=== PATIENT | female | born 1985 | race Hispanic/Latino ===

== ENCOUNTER 2020-02-16 08:24 | Inpatient (IN) | payer OTHER ==
[~2020-02-16] VITALS: Ht 152.4 cm; Wt 87.0 kg
[2020-02-20] MEDS ORDERED: LABETALOL HCL100 MG PO (06:54)
[2020-02-20] MEDS ORDERED: ASPIR-LOW81 MG PO (06:55)
[2020-02-20] MEDS ORDERED: PRENATAL VITAM1 EAC8 PO (06:55)
--- NOTE | 2020-02-20 08:57 | NUR ---
02/20/20 0857 Sheets,Megan 0856 PT ARRIVED TO [facility] ON RA, PT AWAKE AND TALKING TO RNA ND [facility]BC RN. BABY ON CHEST. PT DENIES PAIN AND NAUSEA. GRIMACING NOTED WITH FUNDAL CHECK. VSS.
--- NOTE | 2020-02-20 12:55 | OR ---
[facility] [address] [place], [place] [address] Signed DATE OF OPERATION: 02/20/2020 SURGEON: Celeste Jones MD GUARD IMMIGRATION: Domingo Rider MD PREOPERATIVE DIAGNOSIS: Term , previous section x2. POSTOPERATIVE DIAGNOSIS: Term , previous section x2, delivered. PROCEDURE PERFORMED: Repeat section with low segment transverse uterine incision. ANESTHESIA: Spinal. ESTIMATED BLOOD LOSS: 600 mL. DRAINS: Melton catheter. INDICATIONS AND FINDINGS: The patient is a 34-year-old female, 4, para 2, SAB 1, admitted at 39 weeks for repeat section. The patient has a history of chronic hypertension and is on labetalol. She has been managed on labetalol as well as baby aspirin throughout her . At the time of delivery, she was delivered of a little boy via lower segment transverse uterine incision from the ROT position with Apgars of 9 and 9 and weight of 9 pounds 1 ounce. The lower segment was extremely thin. The uterus, tubes, ovaries, and placenta were otherwise normal. DESCRIPTION OF PROCEDURE: The patient was prepped and draped in the supine position. A repeat Pfannenstiel skin incision was made and carried down through the fascia. The incision was extended laterally. The inferior and superior fascial flaps were then created. The peritoneum was opened at this time and the incision extended superiorly and inferiorly. The Jarett retractor was then placed. The uterine incision was made at the upper aspect of the Electronically Signed By: ECLESTE JONES MD 02/20/20 1236 PATIENT NAME: MEENAKSHI WANG OPERATIVE REPORT DATE OF : 87 REPORT #: [id number] PHYSICIAN: CELESTE JONES MD PCP: CELESTE JONES MD REPORT IS CONFIDENTIAL AND NOT TO BE RELEASED WITHOUT AUTHORIZATION [facility] [address] [place], [place] [address] Signed peritoneal reflection. The lower segment was extremely thin. The baby was delivered with the above findings and handed out to the pediatric staff in attendance. The placenta was delivered manually. The uterus explored with a lap tape assuring no remaining fragments. The edges of the incision were identified and the uterus closed in 2 layers. The first layer was a running locking stitch and the second was a horizontal imbricating stitch. Additional ijgyav-ad-ulzmh was required near the patient's lower left side because of a small hematoma that was forming. This did not expand following this. This layer was then serially irrigated and inspected and good hemostasis was noted. The Jarett retractor was removed and the peritoneum identified. An ACell graft was laid over the lower segment to aid in healing. The peritoneum was then closed with a running suture of 3-0 Vicryl. There were multiple bleeding points on the fascia as there had been quite a bit of scarring. These were primarily in the right upper aspect. This required multiple bcevpb-pj-dtrywt of 0 Vicryl for control of bleeding. Cautery was also used. This area was irrigated and the bleeding appeared to be pretty much resolved except the muscles appeared raw. Because of this, Tisseel was used and sprayed over the muscle to aid further in hemostasis. This was followed by Acell powder to aid in healing. The fascia was then closed from each angle to the midline with a running suture of 0 Vicryl. The subcutaneous tissue was irrigated and inspected and bleeding points controlled with cautery. The deep space was closed with interrupted sutures of 3-0 Vicryl. The skin incision was closed with a subcuticular suture of 4-0 Vicryl Rapide. This was followed by Mastisol and Steri-Strips. All sponge and needle counts were correct. She tolerated the procedure well and was taken to the recovery room in good condition. Celeste Jonse MD PJW/JAMIE /[id number] cc: Domingo Rider MD Copies: DOMINGO RIDER MD Electronically Signed By: CELESTE JONES MD 02/20/20 1236 PATIENT NAME: MEENAKSHI WANG OPERATIVE REPORT DATE OF : 87 REPORT #: [id number] PHYSICIAN: CELESTE JONES MD PCP: CELESTE JONES MD REPORT IS CONFIDENTIAL AND NOT TO BE RELEASED WITHOUT AUTHORIZATION [address] [place] [address] Signed ~ Electronically Signed By: CELESTE JONES MD 02/20/20 1236 PATIENT NAME: JEISON WANGIANA AARON OPERATIVE REPORT DATE OF : 87 REPORT #: [id number] PHYSICIAN: CELESTE JONES MD PCP: CELESTE JONES MD REPORT IS CONFIDENTIAL AND NOT TO BE RELEASED WITHOUT AUTHORIZATION
--- NOTE | 2020-02-21 08:42 | PR ---
[facility] [address] [facility] [place], [place] [address] Signed PP Progress Notes Datetime Report Generated by CPJuan Antonio: 02/21/2020 08:42 SUBJECTIVE: [id number] Pain: Within normal limits Nausea/Vomiting: Denies Flatus: Yes Vital Signs: [id number] Vital Signs: Reviewed; Within Normal Limits EXAM: [id number] Cardiovascular: Normal Respiratory: Normal Abdomen/Uterus: Abnormal Lochia: Normal Vulva/Perineum: Not Done Breasts: Not Done CVA Tenderness: Not Done Extremities: Normal Incision: Normal Progress: Abnormal Exam Comments: Abdomen with active BS. Fundus firm, NT @ U. H/H 9.6/28.2, WBC 6.5, plat 168k IMPRESSION/PLAN/PROCEDURES: [id number] Impression: Normal progression Plan: consult Other Plans: increase ambulation Progress Notes: Doing well. UO much improved. Signing Physician: Celeste Jones MD Copies: ~ *Electronically Signed* 02/21/20 0842 CELESTE JONES MD PATIENT NAME: FELIPEJEISONMEENAKSHIASTRID WALKER PROGRESS NOTE DATE OF : 87 PHYSICIAN: CELESTE JONES MD RPT #: [id number] REPORT IS CONFIDENTIAL AND NOT TO BE RELEASED WITHOUT AUTHORIZATION
--- NOTE | 2020-02-22 07:55 | PR ---
[facility] [address] [facility] [place], [place] [address] Signed PP Progress Notes Datetime Report Generated by CPN: 02/22/2020 07:55 SUBJECTIVE: [id number] Pain: Within normal limits Nausea/Vomiting: Denies Flatus: Yes Vital Signs: [id number] Vital Signs: Reviewed; Within Normal Limits EXAM: [id number] Cardiovascular: Not Done Respiratory: Not Done Abdomen/Uterus: Abnormal Lochia: Normal Vulva/Perineum: Not Done Breasts: Not Done CVA Tenderness: Not Done Extremities: Normal Incision: Normal Progress: Abnormal Exam Comments: Abdomen with active BS. Fundus firm, NT @ U-1. IMPRESSION/PLAN/PROCEDURES: [id number] Impression: Normal progression Plan: Discharge Other Plans: increase ambulation Procedures: None Progress Notes: Doing well except for breast feeding. She is ready for D/C. Signing Physician: Celeste Jones MD Copies: ~ *Electronically Signed* 02/22/20 0755 CELESTE JONES MD PATIENT NAME: FELIPEJEISONMEENAKSHIASTRID WALKER PROGRESS NOTE DATE OF : 87 PHYSICIAN: CELESTE JONES MD RPT #: [id number] REPORT IS CONFIDENTIAL AND NOT TO BE RELEASED WITHOUT AUTHORIZATION
== END 2020-02-22 11:55 | disposition home or self-care (01) | DRG 787 ==
LOC: FBC 02-20 04:57
PROVIDERS: ADMIT Obstetrics & Gynecology
PROC: 10D00Z1 Extraction of Products of Conception, Low, Open Approach (ICD-10-PCS; principal; 2020-02-20 06:45)
DX: O34.211 Maternal care for low transverse scar from previous cesarean delivery (principal); O10.92 Unspecified pre-existing hypertension complicating childbirth; N85.8 Other specified noninflammatory disorders of uterus; O99.214 Obesity complicating childbirth; E66.9 Obesity, unspecified; O32.2XX0 Maternal care for transverse and oblique lie, not applicable or unspecified; Z3A.39 39 weeks gestation of pregnancy; Z37.0 Single live birth; Z79.899 Other long term (current) drug therapy; O69.81X0 Labor and delivery complicated by cord around neck, without compression, not applicable or unspecified; Z79.82 Long term (current) use of aspirin
CPT/HCPCS: 01961; 36415; 85027; A9270; J0690; J1170; J1200; J1644; J1885; J2001; J2270; J2274; J2300; J2405; J2590; J7040; J7121

== ENCOUNTER 2024-01-05 08:15 | Inpatient (IN) | payer OTHER ==
[~2024-01-05 08:15] MED LIST: ASPIR-LOW81 MG PO; LABETALOL HCL100 MG PO; PRENATAL VITAM1 EAC8 PO
[2024-01-06] MEDS ORDERED: LACTATED RINGER'S 1,000 ML IV PRN (05:00)
[2024-01-06] MEDS ORDERED: LACTATED RINGER'S 2,000 ML IV PRN (05:00)
[2024-01-06] MEDS ORDERED: LACTATED RINGER'S 1,000 ML IV SCH ×2 (05:00→08:53)
[2024-01-06 05:41] LABS: HEMOGLOBIN 12.2 g/dL (12.0-18.0); MCH 27.4 (27-36); MCHC 33.9 g/dl (30-36); RBC 4.44 M/ul (4.3-5.7); RDW 14.2 (10.5-15.0)
[2024-01-06 05:50] VITALS: BP 140/88
[2024-01-06 05:57] LABS: AMPHETAMINES, URINE NEGATIVE (NEGATIVE); BARBITURATES, URINE NEGATIVE (NEGATIVE); BENZODIAZEPINE, URINE NEGATIVE (NEGATIVE); BUPRENORPHINE, URINE NEGATIVE (NEGATIVE); CANNABINOID, URINE NEGATIVE (NEGATIVE); COCAINE, URINE NEGATIVE (NEGATIVE); ECSTASY, URINE NEGATIVE (NEGATIVE); FENTANYL, URINE NEGATIVE (NEGATIVE); METHADONE, URINE NEGATIVE (NEGATIVE); OPIATES, URINE NEGATIVE (NEGATIVE); OXYCODONE, URINE NEGATIVE (NEGATIVE); PHENCYCLIDINE, URINE NEGATIVE (NEGATIVE)
[2024-01-06 06:16] LABS: ABO A; ANTIBODY SCREEN NEGATIVE; RH POSITIVE
[2024-01-06] MEDS ORDERED: fentaNYL citrate 100 MCG/2 ML VIAL ONE (06:59)
[2024-01-06] MEDS ORDERED: MORPHINE SULFATE 1 MG/ML VIAL ONE (06:59)
[2024-01-06] MEDS ORDERED: LIDOCAINE HCL 2% 5 ML SDV ONE (06:59)
[2024-01-06] MEDS ORDERED: OXYTOCIN 10 UNITS/ML VIAL ONE ×3 (06:59→08:02)
[2024-01-06] MEDS ORDERED: BUPIVACAINE 0.75% IN DEXTROSE 2 ML AMP ONE (06:59)
[2024-01-06] MEDS ORDERED: ondansetron HCL 4 MG/2 ML VIAL ONE (06:59)
[2024-01-06] MEDS ORDERED: SOD+POT BICARB/CITRIC ACID 2 EA TABLET.EFF PO SCH (07:00)
[2024-01-06] MEDS ORDERED: CEFAZOLIN SODIUM 3 GM/30 ML SYR IV SCH (07:00)
[2024-01-06] MEDS ORDERED: ePHEDrine sulfate 50 MG/ML AMP ONE (07:22)
[2024-01-06] MEDS ORDERED: Ropivacaine HCl 0.5% 30 ML VIAL ONE (07:53)
[2024-01-06] MEDS ORDERED: DEXAMETHASONE SOD PHOS 4 MG/ML VIAL ONE ×2 (07:53)
[2024-01-06] MEDS ORDERED: SODIUM CHLORIDE 0.9% 20 ML IV ONE (07:53)
[2024-01-06] MEDS ORDERED: NALOXONE HCL 0.4 MG SYR IV PRN (08:00)
[2024-01-06] MEDS ORDERED: ondansetron HCL 4 MG/2 ML VIAL IV PRN ×2 (08:00→09:00)
[2024-01-06] MEDS ORDERED: KETOROLAC TROMETHAMINE 30 MG/ML VIAL IV PRN (08:00)
[2024-01-06] MEDS ORDERED: diphenhydrAMINE HCL 50 MG/ML VIAL IV PRN (08:00)
[2024-01-06] MEDS ORDERED: HYDROmorphone HCL 1 MG/ML SYR IV PRN (08:00)
[2024-01-06] MEDS ORDERED: PROCHLORPERAZINE EDISYLATE 10 MG/2 ML VIAL IV PRN ×2 (08:00→09:00)
[2024-01-06] MEDS ORDERED: LACTATED RINGER'S 1,000 ML IV ONE ×2 (08:02)
--- NOTE | 2024-01-06 08:49 | NUR ---
01/06/24 0849 Erinn Martinez 0865-PATIENT ARRIVED TO ROOM 104 [facility] FOR RECOVERY. PATIENT AWAKE DENIES PAIN OR NAUSEA. RA 99% RR EVEN. SPINAL LEVEL AT T9. LÓPEZ CATHETER DRAINING YELLOW URINE. SR. LIGHT RUBRA DRAINAGE TO ASHLEY PAD. ABDOMINAL DRESSING CDI. FAMILY AT BEDSIDE. IVF INFUSING LR WITH 20 PITOCIN TO RIGHT HAND CDI.
[2024-01-06] MEDS ORDERED: OXYCODONE HCL 5 MG TAB PO PRN (09:00)
[2024-01-06] MEDS ORDERED: SENNOSIDES/DOCUSATE 1 EA TAB PO SCH (09:00)
[2024-01-06] MEDS ORDERED: KETOROLAC TROMETHAMINE 30 MG/ML VIAL IV SCH (09:00)
[2024-01-06] MEDS ORDERED: OXYTOCIN/0.9 % SODIUM CHLORIDE 500 ML IV SCH (09:00)
[2024-01-06] MEDS ORDERED: METOCLOPRAMIDE HCL 10 MG/2 ML SDV IV PRN (09:00)
[2024-01-06] MEDS ORDERED: PROMETHAZINE HCL 25 MG TAB PO PRN (09:00)
[2024-01-06] MEDS ORDERED: bisacodyL 10 MG SUPP PR PRN (09:00)
[2024-01-06] MEDS ORDERED: PROMETHAZINE HCL 25 MG SUPP PR PRN (09:00)
[2024-01-06] MEDS ORDERED: HYDROCODONE/ACETA 5/325 TAB PO PRN (09:00)
[2024-01-06] MEDS ORDERED: OXYCODONE/APAP 5/325 TAB PO PRN (09:00)
[2024-01-06] MEDS ORDERED: SIMETHICONE 125 MG TABLET CHEWABLE PO SCH (11:00)
[2024-01-06] MEDS ORDERED: ENOXAPARIN SODIUM 40 MG/0.4 ML SYR SUB-Q SCH (15:00)
[2024-01-07] MEDS ORDERED: LACTATED RINGER'S 1,000 ML IV SCH (05:00)
[2024-01-07 05:49] LABS: HEMATOCRIT 31.2 % (35.0-50.0); HEMOGLOBIN 10.2 g/dL (12.0-18.0); MCH 27.1 (27-36); MCHC 32.9 g/dl (30-36); MCV 82.4 fl (81-99); RBC 3.78 M/ul (4.3-5.7); RDW 14.2 (10.5-15.0)
--- NOTE | 2024-01-07 06:54 | PR ---
[facility] [address] [facility] [place], [place] [address] Signed PP Progress Notes Datetime Report Generated by CPN: 01/07/2024 06:54 SUBJECTIVE: [id number] Pain: Within Normal Limits Nausea/Vomiting: Present Flatus: Yes Vital Signs: [id number] Vital Signs: Reviewed; Within Normal Limits EXAM: Ongoing Cardiovascular: Normal Respiratory: Normal Abdomen/Uterus: Abnormal Lochia: Normal Vulva/Perineum: Not Done Breasts: Not Done CVA Tenderness: Not Done Extremities: Normal Incision: Normal Progress: Abnormal Exam Comments: Abdomen with active BS. Fundus firm, NT @ U. H/H 10.2/31.2, WBC 7.6, plat 243k IMPRESSION/PLAN/PROCEDURES: [id number] Impression: Normal Progression Other Plans: ambulate, shower Procedures: None Progress Notes: Doing well. Will increase ambulation. Signing Physician: Celeste Jones MD Copies: ~ *Electronically Signed* 01/07/24 0654 CELESTE JONES MD PATIENT NAME: FELIPEJEISONMEENAKSHIASTRID WALKER PROGRESS NOTE DATE OF : 87 PHYSICIAN: CELESTE JONES MD RPT #: [id number] REPORT IS CONFIDENTIAL AND NOT TO BE RELEASED WITHOUT AUTHORIZATION
[2024-01-07] MEDS ORDERED: IBUPROFEN 600 MG TAB PO SCH (08:00)
--- NOTE | 2024-01-07 13:40 | NUR ---
ROUNDS. DETAILED NOTE ENTERED IN [facility] CHARTING SYSTEM.
--- NOTE | 2024-01-08 07:31 | PR ---
[facility] [address] [facility] [place], [place] [address] Signed PP Progress Notes Datetime Report Generated by CHRIS: 01/08/2024 07:31 SUBJECTIVE: [id number] Pain: Within Normal Limits Nausea/Vomiting: Denies Flatus: Yes Bowel Movement: Yes Vital Signs: [id number] Vital Signs: Reviewed; Within Normal Limits EXAM: Ongoing Cardiovascular: Normal Respiratory: Normal Abdomen/Uterus: Abnormal Lochia: Normal Vulva/Perineum: Not Done Breasts: Not Done CVA Tenderness: Not Done Extremities: Normal Incision: Normal Progress: Normal Exam Comments: Fundus firm, NT @ U. IMPRESSION/PLAN/PROCEDURES: [id number] Impression: Normal Progression Plan: Discharge Other Plans: ambulate, shower Procedures: None Progress Notes: Doing well. She is ready for D/C. Signing Physician: Celeste Jones MD Copies: ~ *Electronically Signed* 01/08/24730 CELESTE JONES MD PATIENT NAME: MEENAKSHI WANG PROGRESS NOTE DATE OF : 87 PHYSICIAN: CELESTE JONES MD RPT #: [id number] REPORT IS CONFIDENTIAL AND NOT TO BE RELEASED WITHOUT AUTHORIZATION
[2024-01-08 08:01] VITALS: BP 131/93
--- NOTE | 2024-01-08 15:26 | PATH ---
[facility] [address] [place], [place] [address] Signed SPECIMEN(S): A PORTIONS OF BILATERAL FALLOPIAN TUBES SPECIMEN SOURCE: A. PORTIONS OF BILATERAL FALLOPIAN TUBES CLINICAL HISTORY: Previous . FINAL PATHOLOGIC DIAGNOSIS: Portions of bilateral fallopian tubes: - Two segments of benign fimbriated oviduct. - Focal incidental lymphangioma. JVR:leni MICROSCOPIC EXAMINATION: Histologic sections of all submitted blocks are examined by light microscopy. These findings, together with the gross examination, support the pathologic diagnosis. GROSS DESCRIPTION: The specimen, labeled and designated "Juan, portions of bilateral fallopian tubes," is received in formalin and consists of two undesignated fallopian tubes. Both show fimbria and violaceus and smooth serosa. The first tube measures 5.5 x 0.8 cm. The second fallopian tube measures 6.0 x 0.8 cm. Sectioning through both fallopian tubes is grossly unremarkable. Cassette Summary: (A1) first fallopian tube, sales representative aircraft sections (A2) second fallopian tube, sales representative aircraft sections JS (under the direct supervision of a pathologist) The Gross Description was prepared using a voice recognition system. The report was reviewed for accuracy; however, sound-alike word errors, addition and/or deletions may occur. If there is any question about this report, please contact Client Services. PERFORMING LABORATORY: Technical component was performed by [facility], [address] [place] [id number] (CLIA# [id number]). Professional interpretation was performed by [facility], [address] [place] [address], [place] [address] (CLIA#: [id number]). PATIENT NAME: MEENAKSHI WANG PATHOLOGY DATE OF : 87 REPORT #: [id number] PHYSICIAN: [facility] PCP: NO PRIMARY CARE PHYSICIAN REPORT IS CONFIDENTIAL AND NOT TO BE RELEASED WITHOUT AUTHORIZATION [facility] [address] [place] [address] Signed Diagnostician: Andriy Patricio MD Pathologist Electronically Signed 01/08/2024 Copies: ~ PATIENT NAME: MEENAKSHI WANG PATHOLOGY DATE OF : 87 REPORT #: [id number] PHYSICIAN: [facility] PCP: NO PRIMARY CARE PHYSICIAN REPORT IS CONFIDENTIAL AND NOT TO BE RELEASED WITHOUT AUTHORIZATION
--- NOTE | 2024-01-14 07:53 | OR ---
[facility] [address] [place], [place] [address] Signed DATE OF OPERATION: 01/06/2024 SURGEON: Celeste Jones MD COMPUTER SCIENCE INSTRUCTOR: LOPEZ Garcia DO PREOPERATIVE DIAGNOSES: Term , previous section and desire for bilateral risk reducing salpingectomy. POSTOPERATIVE DIAGNOSES: Term , previous section and desire for bilateral risk reducing salpingectomy with uterine window. PROCEDURE: Repeat section with bilateral salpingectomy. ANESTHESIA: Spinal. ESTIMATED BLOOD LOSS: 600 mL. DRAINS: Melton catheter. INDICATIONS AND FINDINGS: The patient is a 38-year-old female 5, para 3, SAB 1, admitted at 39 weeks for repeat section. At the time of surgery, there was a window in the uterine incision. The tubes, ovaries, and placenta otherwise appeared normal. She was delivered of a little boy via lower segment transverse uterine incision from ROP position with Apgars of 9 and 9 and weight of 8 pounds 10 ounces. DESCRIPTION OF PROCEDURE: The patient was prepped and draped in the supine position. Repeat Pfannenstiel skin incision was made and carried down through the fascia. The incision was extended laterally. The inferior and superior fascial flaps were then created. The muscles were sharply divided and the peritoneum opened and the incision extended bluntly. The Jarett retractor was then placed. The uterine incision was made at the upper aspect of the Electronically Signed By: CELESTE JONES MD 01/14/24 0753 PATIENT NAME: MEENAKSHI WANG OPERATIVE REPORT DATE OF : 87 REPORT #: [id number] PHYSICIAN: CELESTE JONES MD PCP: NO PRIMARY CARE PHYSICIAN REPORT IS CONFIDENTIAL AND NOT TO BE RELEASED WITHOUT AUTHORIZATION [facility] [address] [place], [place] [address] Signed peritoneal reflection, which was through the window. Clear fluid was noted. The baby was delivered with the above findings and handed off to the pediatric staff in attendance. The placenta was expressed and the uterus explored with a lap tape assuring no remaining fragments. The edges of the incision were identified and the uterus was closed in 2 layers using 0 Monocryl. The first layer was a running locking stitch and the 2nd was a vertical imbricating stitch. The abdomen was irrigated and the incision appeared to hemostatic. Pressure was applied to the uterine incision while the tubes were identified and grasped with Sean clamps. The hand-held LigaSure device was used to serially coagulate and divide the mesosalpinx on each side with the result of complete excision of the tubes and this was done bilaterally. Each of these areas was re-evaluated and rendered hemostatic. The incision was then re-examined and appeared hemostatic. The Jarett retractor was removed and the peritoneum identified and closed with running suture of 3-0 Vicryl. The muscles were brought together with interrupted sutures of 0 Vicryl. There were quite a few bleeding areas on the muscles and in the subfascial space and these were controlled with a combination of monopolar and bipolar cautery. This area was irrigated, inspected and it appeared to be hemostatic but because of the large raw area, Cely was then placed. The fascia was then closed from each angle to the midline with a running suture of 0 Vicryl. The subcu space was irrigated and bleeding points were controlled with cautery. The deep space was closed with interrupted sutures of 3-0 Vicryl. The skin incision was closed with a subcuticular suture of 4-0 Vicryl Rapide. This was followed by Mastisol and Steri-Strips. All sponge and needle counts were correct. She tolerated the procedure well and was taken to the recovery room in good condition. MD BESSY CheW/MODL /[id number] Copies: ~ Electronically Signed By: CELESTE JONES MD 01/14/24 0753 PATIENT NAME: MEENAKSHI WANG OPERATIVE REPORT DATE OF : 87 REPORT #: [id number] PHYSICIAN: CELESTE JONES MD PCP: NO PRIMARY CARE PHYSICIAN REPORT IS CONFIDENTIAL AND NOT TO BE RELEASED WITHOUT AUTHORIZATION
== END 2024-01-08 10:12 | disposition home or self-care (01) | DRG 785 ==
LOC: FBC 01-06 04:48
PROVIDERS: Obstetrics & Gynecology; ADMIT Obstetrics & Gynecology; ATTEND Obstetrics & Gynecology
PROC: 0UB70ZZ Excision of Bilateral Fallopian Tubes, Open Approach (ICD-10-PCS; 2024-01-06)
PROC: 10D00Z1 Extraction of Products of Conception, Low, Open Approach (ICD-10-PCS; principal; 2024-01-06 07:30)
DX: O34.211 Maternal care for low transverse scar from previous cesarean delivery (principal); Z3A.39 39 weeks gestation of pregnancy; Z37.0 Single live birth; Z30.2 Encounter for sterilization; O69.81X0 Labor and delivery complicated by cord around neck, without compression, not applicable or unspecified
CPT/HCPCS: 01961; 36415; 76942; 80307; 85027; 86850; 86900; 86901; 88302; A9270; J0690; J1100; J1650; J1885; J2001; J2274; J2405; J2590; J2795; J3010; J7121